=== PATIENT | male | born 1945 | race Hispanic/Latino ===

== ENCOUNTER 2021-08-26 06:23 | Day surgery (SDC) | payer OTHER ==
[2021-08-12 11:03] LABS: Hemoglobin 14.6 gm/dl (11.8-15.2); Mean Corpuscular HGB Conc 35 % (32-34); Mean Corpuscular Volume 89 fl (84-94); Platelet Count 207 K/mm3 (140-440); Red Blood Count 4.72 M/mm3 (3.65-5.03); Red Cell Distribution Width 15.6 % (13.2-15.2)
[2021-08-12 11:33] LABS: Alanine Aminotransferase 31 units/L (7-56); Albumin 3.6 g/dL (3.9-5); BUN/Creatinine Ratio 16; Blood Urea Nitrogen 19 mg/dL (9-20); Calcium 8.9 mg/dL (8.4-10.2); Hemolysis Index 34
--- NOTE | 2021-08-12 12:07 | Anesthesia Consultation ---
Anesthesia Consult and Med Hx Date of service: 08/26/21 - Airway Anesthetic Teeth Evaluation: Poor (missing most upper teeth 2/2 fall) ROM Head & Neck: Adequate Mental/Hyoid Distance: Adequate Mallampati Class: Class III Intubation Access Assessment: Possibly Difficult - Pulmonary Exam CTA: Yes - Cardiac Exam Cardiac Exam: RRR - Pre-Operative Health Status ASA Pre-Surgery Classification: ASA4 Proposed Anesthetic Plan: General - Pulmonary Hx Smoking: Yes (STOPPED X 40 YRS (60 pk yr hx)) Hx Respiratory Symptoms: Yes (chronic STAHL) COPD: Yes (prn albuterol; SpO2 97% on RA in preassessment) Home Oxygen Therapy: Yes (O2 nightly and occasional during the day; unsure how many liters) Hx Sleep Apnea: Yes (+ CPAP) - Cardiovascular System Hx Hypertension: Yes Hx Coronary Artery Disease: Yes (EF 50%) Hx Heart Attack/AMI: Yes Hx Percutaneous Transluminal Coronary Angioplasty (PTCA): Yes (s/p extensive PCI 12/2020; must continue ASA/plavix periop per admissions dean) Hx Cardia Arrhythmia: No - Central Nervous System CVA: No - Endocrine Hx Renal Disease: No Hx Liver Disease: No Hx Insulin Dependent Diabetes: Yes Hx Thyroid Disease: No - Other Systems Hx Obesity: Yes (BMI 44) - Additional Comments Anesthesia Medical History Comments: No hx anesthetic complications. Complains of LLE pain and has appointment for LLE ultrasound today (08/12) at [facility]
[~2021-08-26 06:23] MED LIST: LACTATED RINGERS 1,000 ML IV SCH
[2021-08-26] MEDS ORDERED: BACTERIOSTATIC SODIUM CHLORIDE 0.9% 30 ML VIAL INFILTRATI ONE (06:28)
[2021-08-26] MEDS ORDERED: HYDROcodone/ACETAMINOPHEN 5-325 MG TAB PO PRN (07:27)
--- NOTE | 2021-08-26 07:29 | Anesthesia Day of Surgery ---
Anesthesia Day of Surgery - Day of Surgery Patient Examined: Yes Patient H&P Reviewed: Yes Patient is NPO: Yes Beta Blockers: Yes (home dose metoprolol given in preop)
[2021-08-26] MEDS ORDERED: ONDANSETRON 4 MG/2 ML INJ ONE (07:30)
[2021-08-26] MEDS ORDERED: HYDROmorphone 1 MG/1 ML INJ ONE (07:30)
[2021-08-26] MEDS ORDERED: LIDOCAINE MPF (2%) 20 MG/1 ML VIAL 5 ML ONE (07:30)
[2021-08-26] MEDS ORDERED: propofoL 200 MG/20 ML VIAL IV ONE (07:30)
[2021-08-26] MEDS ORDERED: fentaNYL 100 MCG/2 ML INJ IV PRN (08:00)
[2021-08-26] MEDS ORDERED: ONDANSETRON 4 MG/2 ML INJ IV PRN (08:00)
[2021-08-26] MEDS ORDERED: METOPROLOL TARTRATE 25 MG TAB PO NR (08:00)
[2021-08-26] MEDS ORDERED: amLODIPine 10 MG TAB PO NR (08:00)
[2021-08-26] MEDS ORDERED: WATER FOR IRRIG STERILE 2000 ML IR ONE (08:28)
--- NOTE | 2021-08-26 10:34 | Post Anesthesia Evaluation ---
- Post Anesthesia Evaluation Patient Participated: Yes Airway Patent: Yes Stable Respiratory Function: Yes Nausea/Vomiting: No Temp > 96.8F: Yes Pain Manageable: Yes Adequeate Hydration: Yes Anesthesia Complications: No
[2021-08-26 10:42] VITALS: BP 121/59
--- NOTE | 2021-09-04 08:14 | Operative Report ---
DATE OF SURGERY: 08/26/2021 PREOPERATIVE DIAGNOSES: Benign prostatic hypertrophy with refractory lower urinary tract symptoms despite maximal medical therapy. POSTOPERATIVE DIAGNOSES: Benign prostatic hypertrophy with refractory lower urinary tract symptoms despite maximal medical therapy. OPERATIVE PROCEDURE: Cystoscopy, Rezum procedure. ATTENDING: Max Peraza MD GUM MAKER: Dr. Rosenbaum. ANESTHESIA: General. ESTIMATED BLOOD LOSS: 10 mL. SPECIMENS: None. DRAINS: A Pimentel catheter. COMPLICATIONS: None. INDICATIONS FOR PROCEDURE: The patient is a 76-year-old man with refractory lower urinary tract symptoms secondary to BPH, who was on maximal medical therapy. Despite all therapy, the patient still had significant voiding symptoms and wished for outlet obstruction. DESCRIPTION OF PROCEDURE IN DETAIL: After induction of suitable anesthesia and proper positioning and preparation in the dorsal lithotomy position, cystoscopy was performed to reexamine the lower urinary tract to ensure that there were unexpected findings, which there were none. At this point, the cystoscope was removed and the resumed device was then inserted per urethra into the bladder. Following supervisor tumbling and rolling's instructions, the Rezum needle was placed into the right lateral lobe. The device was then engaged and the steam was applied to the right lateral lobe. The needle was removed and the procedure was repeated on the patient's left lateral lobe. The left lateral lobe was larger and the device was deployed twice to ensure maximal outlet reduction. The patient did not have a median lobe. The patient's prostate was approximately 35 grams, making him an ideal candidate for Rezum. Once the steam had been applied to the right and left lateral lobes where all the obstruction was, the bladder was reexamined as well as the prostatic urethra and there was no bleeding. The Rezum device was then removed and a Pimentel catheter was placed. Pimentel catheter will stay in approximately 3-5 days. The patient was then awakened from anesthesia and transported to the recovery room in stable condition. He tolerated the procedure well. He will return in approximately 3-5 days for Pimentel catheter removal. TID: [id number] RECEIPT: [id number] LIZZY/HALI
== END 2021-08-26 10:30 | disposition home or self-care (01) ==
LOC: OR 06:23
PROVIDERS: ATTEND Urology
DX: N40.1 Benign prostatic hyperplasia with lower urinary tract symptoms (principal); Z20.822 Contact with and (suspected) exposure to COVID-19; I10 Essential (primary) hypertension; I25.10 Atherosclerotic heart disease of native coronary artery without angina pectoris; I25.2 Old myocardial infarction; J44.9 Chronic obstructive pulmonary disease, unspecified; E11.9 Type 2 diabetes mellitus without complications; G47.33 Obstructive sleep apnea (adult) (pediatric); Z99.81 Dependence on supplemental oxygen; E66.9 Obesity, unspecified; Z68.41 Body mass index [BMI] 40.0-44.9, adult; Z87.891 Personal history of nicotine dependence; Z79.899 Other long term (current) drug therapy; Z79.4 Long term (current) use of insulin; Z95.5 Presence of coronary angioplasty implant and graft; Z98.890 Other specified postprocedural states
CPT/HCPCS: 36415; 53854; 80053; 82962; 85027; J0690; J1170; J2405; J2704; J7120; U0003